=== PATIENT | female | born 1930 | race Caucasian/White ===

== ENCOUNTER 2019-02-24 12:24 | Day surgery (SDC) | payer MEDICARE, OTHER ==
[~2019-02-24 12:24] MED LIST: Buffered Lidocaine 1% SYRIN* 1 ML/SYRINGE INTRADERM ONE; Famotidine IV* 10 MG/ML 2 ML (20 mg) IV ONE; Lactated Ringers 1000 ML Bag* 1,000 ML IV SCH
[2019-02-24] MEDS ORDERED: Famotidine IV* 10 MG/ML 2 ML (20 mg) ONE (12:59)
[2019-02-24] MEDS ORDERED: Buffered Lidocaine 1% SYRIN* 1 ML/SYRINGE INTRADERM ONE (12:59)
[2019-02-24] MEDS ORDERED: Clindamycin 900 MG/D5W BAG(*) 900 MG/50 ML BAG IVPB ONE (12:59)
[2019-02-24] MEDS ORDERED: Labetalol IV* 5 MG/ML 20 ML VIAL ONE (13:37)
[2019-02-24] MEDS ORDERED: Midazolam* 1 MG/ML 5 ML VIAL (5 MG) ONE (15:25)
[2019-02-24] MEDS ORDERED: fentaNYL* 50 MCG/ML 2 ML VIAL (100 MCG VIAL) ONE ×3 (15:26→18:44)
[2019-02-24] MEDS ORDERED: Bupivacaine 0.25% SDV PF* 10 ML VIAL INJ ONE (15:28)
[2019-02-24] MEDS ORDERED: Mineral Oil Sterile, TOPICAL* 25 ML BTL ONE (15:28)
[2019-02-24] MEDS ORDERED: Lidocaine 1% w EPI 1:100,000* MDV 20 ML VIAL ONE (15:28)
[2019-02-24] MEDS ORDERED: Naloxone* 0.4 MG/ML 1 ML VIAL IV PRN (15:29)
[2019-02-24] MEDS ORDERED: HYDROcodone/ACETAMIN 5-325 MG* 1 TAB PO PRN (15:29)
[2019-02-24] MEDS ORDERED: fentaNYL* 50 MCG/ML 2 ML VIAL (100 MCG VIAL) IV PRN (15:29)
[2019-02-24] MEDS ORDERED: Acetaminophen TAB* 325 MG PO PRN (15:29)
[2019-02-24] MEDS ORDERED: Ondansetron INJ* 2 MG/ML VIAL IV PRN (15:29)
[2019-02-24] MEDS ORDERED: Lidocaine 2% PF * 5 ML VIAL ONE (15:46)
[2019-02-24] MEDS ORDERED: Propofol* 10 MG/ML 20 ML BTL ONE (15:46)
[2019-02-24] MEDS ORDERED: Acetaminophen TAB* 325 MG ONE (18:02)
[2019-02-24 20:37] VITALS: BP 145/81
== END 2019-02-24 21:15 | disposition home or self-care (01) ==
LOC: OR 12:24
PROVIDERS: ATTEND Plastic Surgery
DX: C44.729 Squamous cell carcinoma of skin of left lower limb, including hip (principal); I10 Essential (primary) hypertension; I25.10 Atherosclerotic heart disease of native coronary artery without angina pectoris; Z95.5 Presence of coronary angioplasty implant and graft; E03.9 Hypothyroidism, unspecified; Z79.01 Long term (current) use of anticoagulants; K21.9 Gastro-esophageal reflux disease without esophagitis; I73.9 Peripheral vascular disease, unspecified
CPT/HCPCS: 88305; 88329; A9270-GY; J2250; J2704; J3010; J3490